=== PATIENT | male | born 1970 ===

== ENCOUNTER 2016-12-21 14:18 | Emergency (ER) | payer OTHER ==
[2016-12-21 14:29] VITALS: BP 129/74; PULSE 77; RESP 17; TEMP 98.7; O2SAT 98
--- NOTE | 2016-12-21 15:04 | ED PDOC ---
HPI: Eye Injury/Pain Time Seen by Provider: 12/21/16 14:36 Chief Complaint (Nursing): ENT Problem Chief Complaint (Provider): Eye Irritation History Per: Patient History/Exam Limitations: no limitations Onset/Duration Of Symptoms: Hrs Current Symptoms Are (Timing): Still Present Injury To Eye?: No Quality: Burning (Burning sensation to left eye.) Associated Symptoms: Pain. denies: Discharge From Eye Additional Complaint(s): Johnny Dheeraj Patel, a 46 year old male, presents to the ED with eye irritation. The patient reports that 20 mins prior to arrival he was cleaning his house when chlorine got into his eye. He reports a burning sensation to his left eye, blurry vision, photophobia, headache, pain to the eyes and dizziness. Denies double double vision. Past Medical History Reviewed: Historical Data, Nursing Documentation, Vital Signs Vital Signs: Last Vital Signs Temp 98.7 F 12/21/16 14:26 Pulse 77 12/21/16 14:26 Resp 17 12/21/16 14:26 BP 129/74 12/21/16 14:26 Pulse Ox 98 12/21/16 14:26 - Medical History PMH: No Chronic Diseases - Family History Family History: States: Unknown Family Hx - Home Medications Home Medications: Ambulatory Orders Medication Instructions Recorded Polymyxin/Trimethoprim Sulfate 100 drop OD BID #1 bottle 12/21/16 [Polytrim Ophth Soln] - Allergies Allergies/Adverse Reactions: Allergies Allergy/AdvReac Type Severity Reaction Status Date / Time No Known Allergies Allergy Verified 12/21/16 14:37 Review of Systems Eyes: Positive for: Pain (Pain bilaterally;Burning to left eye.), Other ( Photophobia). Negative for: Vision Change Neurological: Positive for: Headache, Dizziness Physical Exam - Reviewed Nursing Documentation Reviewed: Yes Vital Signs Reviewed: Yes - Physical Exam Appears: Positive for: Non-toxic, No Acute Distress Eye Exam: Positive for: EOMI (No painful extra occular movements.), PERRL, Other (Negative for mario's sign, hyphema; Positive for subconjunctival heammorhage;Negative fluorescein uptake on wood lamp and lid inversion; PH of eye -8.) Neurologic/Psych: Positive for: Alert, Oriented, Gait - ECG O2 Sat by Pulse Oximetry: 98 (RA) Pulse Ox Interpretation: Normal Medical Decision Making Medical Decision Makin:36 Initial Impression: 46 year old male presenting with eye irritation Initial Plan: 14:45 Patient will receive elle's lens, normal saline irrigation of the eye (500cc) Scribe Attestation Documented by Renee Rm acting as a scribe for Cecile Mathews PA-C. MD Scribe Attestation All medical record entries made by the Scribe were at my direction and personally dictated by me. I have reviewed the chart and agree that the record accurately reflects my personal performance of the history, physical exam, medical decision making, and the department course for this patient. I have also personally directed, reviewed, and agree with the discharge instructions and disposition. Disposition - Clinical Impression Clinical Impression: Chemical insult, eye - Disposition Disposition Time: 14:45 Condition: STABLE Prescriptions: Polymyxin/Trimethoprim Sulfate [Polytrim Ophth Soln] 100 drop OD BID #1 bottle Instructions: [facility] (ED) Forms: [facility] ED School/Work Excuse Print Language: JAPANESE
== END 2016-12-21 16:57 | disposition home or self-care (01) ==
LOC: H.ER 14:18
DX: Z77.098 Contact with and (suspected) exposure to other hazardous, chiefly nonmedicinal, chemicals (principal)

== ENCOUNTER 2016-12-23 11:21 | Emergency (ER) | payer OTHER ==
[2016-12-23 11:34] VITALS: BP 104/64; PULSE 64; RESP 20; TEMP 98; O2SAT 98
--- NOTE | 2016-12-23 11:51 | ED PDOC ---
HPI: Eye Injury/Pain Time Seen by Provider: 12/23/16 11:49 Chief Complaint (Nursing): Eye Problem Chief Complaint (Provider): left eye irritation History Per: Patient (46 y/o male here with left eye irritation after accidental clorox spill in left eye 2 days ago. Was seen in ED at that time/ eye was irrigated and given polytrim eyedrop for home. Denies any change in vision today. NOtes mild irritation persist in eye.) Past Medical History Reviewed: Historical Data, Nursing Documentation, Vital Signs Vital Signs: Last Vital Signs Temp 98 F 12/23/16 11:32 Pulse 64 12/23/16 11:32 Resp 20 12/23/16 11:32 BP 104/64 12/23/16 11:32 Pulse Ox 98 12/23/16 11:32 - Family History Family History: States: Unknown Family Hx - Home Medications Home Medications: Ambulatory Orders Medication Instructions Recorded Polymyxin/Trimethoprim Sulfate 100 drop OD BID #1 bottle 12/21/16 [Polytrim Ophth Soln] Erythromycin 0.5% [Ilytocin] 0.25 in LEFTEYE BID #1 tube 12/23/16 - Allergies Allergies/Adverse Reactions: Allergies Allergy/AdvReac Type Severity Reaction Status Date / Time No Known Allergies Allergy Verified 12/23/16 11:32 Review of Systems ROS Statement: Except As Marked, All Systems Reviewed And Found Negative ENT: Positive for: Other (eye irritation) Physical Exam - Reviewed Nursing Documentation Reviewed: Yes Vital Signs Reviewed: Yes (visual acuity left 20/20; right 20/25; bilat 20/20) - Physical Exam Appears: Positive for: Well, Non-toxic, No Acute Distress Head Exam: Positive for: ATRAUMATIC, NORMAL INSPECTION, NORMOCEPHALIC Skin: Positive for: Normal Color, Warm, DRY Eye Exam: Positive for: EOMI, PERRL, Other (mild conjunctival irritation noted. No fluorescein uptake noted.). Negative for: Normal appearance ENT: Positive for: Normal ENT Inspection Neck: Positive for: Normal, Painless ROM Cardiovascular/Chest: Positive for: Regular Rate, Rhythm Respiratory: Positive for: CNT, Normal Breath Sounds Gastrointestinal/Abdominal: Positive for: Normal Exam, Bowel Sounds, Soft Back: Positive for: Normal Inspection Extremity: Positive for: Normal ROM Neurologic/Psych: Positive for: Alert, Oriented - ECG O2 Sat by Pulse Oximetry: 98 - Progress ED Course And Treament: Erythromycin ointment placed left eye with eye patched. Disposition - Clinical Impression Clinical Impression: Chemical exposure of eye - Patient ED Disposition Is Patient to be Admitted: No - Disposition Referrals: Tristin Baum MD [Staff Provider] - Disposition: Routine/Home Disposition Time: 12:28 Condition: FAIR Prescriptions: Erythromycin 0.5% [Ilytocin] 0.25 in LEFTEYE BID #1 tube Instructions: [facility] (ED) Forms: [facility] ED School/Work Excuse Print Language: ALBAN[place]
[2016-12-23] MEDS ORDERED: Erythromycin 0.5% Ophth Oint 1 APPLIC/3.5 G OS ONE (12:08)
== END 2016-12-23 13:10 | disposition home or self-care (01) ==
LOC: H.ER 11:21
DX: Z77.098 Contact with and (suspected) exposure to other hazardous, chiefly nonmedicinal, chemicals (principal)